=== PATIENT | female | born 1985 | race Caucasian/White ===

== ENCOUNTER 2017-12-01 17:39 | Emergency (ER) | payer BC ==
[~2017-12-01] VITALS: Ht 170.2 cm; Wt 105.7 kg
[2017-12-01 20:24] VITALS: BP 100/60
== END 2017-12-01 20:24 | disposition home or self-care (01) ==
LOC: ED 17:39
DX: B34.9 Viral infection, unspecified (principal); J06.9 Acute upper respiratory infection, unspecified; J45.909 Unspecified asthma, uncomplicated
CPT/HCPCS: J7030; J7613; J7644

== ENCOUNTER 2019-08-29 02:32 | Emergency (ER) | payer SELFPAY ==
[~2019-08-29] VITALS: Ht 170.2 cm; Wt 107.0 kg
[2019-08-29 02:58] VITALS: Ht 170.2 cm; Wt 107.0 kg
[2019-08-29 04:37] VITALS: BP 113/76
== END 2019-08-29 04:37 | disposition home or self-care (01) ==
LOC: ED 02:32
DX: S50.862A Insect bite (nonvenomous) of left forearm, initial encounter (principal); L08.9 Local infection of the skin and subcutaneous tissue, unspecified; L03.114 Cellulitis of left upper limb; J45.909 Unspecified asthma, uncomplicated; Z87.442 Personal history of urinary calculi; W57.XXXA Bitten or stung by nonvenomous insect and other nonvenomous arthropods, initial encounter; Y93.89 Activity, other specified; Y92.89 Other specified places as the place of occurrence of the external cause; Y99.8 Other external cause status
CPT/HCPCS: J0696; J1100